=== PATIENT | male | born 1990 | race Caucasian/White ===

== ENCOUNTER 2017-11-18 09:36 | Inpatient (IN) | payer BC ==
[~2017-11-18] VITALS: Ht 195.6 cm; Wt 207.7 kg
[2017-11-18 09:41] VITALS: Ht 195.6 cm; Wt 207.7 kg
[2017-11-18 11:45] LABS: BASOPHIL % 0.2 % (0-2); PLATELET COUNT 343 x10^3mcL (130-400); RED CELL DISTRIBUTION WIDTH 14.5 % (11.5-14.5)
[2017-11-18 12:03] LABS: CALCIUM 9.2 mg/dL (8.5-10.1); CARBON DIOXIDE 29.4 mmol/L (21-32); CHLORIDE SERUM 108 mmol/L (98-107); CREATININE SERUM 1.2 mg/dL (0.7-1.3); GFR1 > 60 mL/min; GLUCOSE SERUM 90 mg/dL (74-106); POTASSIUM SERUM 4.1 mmol/L (3.5-5.1); SODIUM SERUM 140 mmol/L (136-145)
[2017-11-18 12:07] LABS: ALBUMIN 3.7 g/dL (3.4-5.0); ALKALINE PHOSPHATASE 66 U/L (46-116); ALT/SGPT 82 U/L (16-63); AMYLASE 41 U/L (25-115); AST/SGOT 42 U/L (15-37); BILIRUBIN TOTAL 0.47 mg/dL (0.20-1.00); LIPASE 120 IU/L (73-393); TOTAL PROTEIN, SERUM 7.5 g/dL (6.4-8.2)
[2017-11-18 13:07] LABS: UA SPECIFIC GRAVITY 1.025 (1.005-1.035); microscopic required? YES; urine erythrocyte 3+ (NEGATIVE)
[2017-11-18] MEDS ORDERED: PHENTERMINE HCL30 MG PO (14:33)
[2017-11-18] MEDS ORDERED: COZAAR100 MG PO (14:33)
[2017-11-18] MEDS ORDERED: TOPROL XL25 MG PO (14:34)
[2017-11-18 15:58] LABS: CHOLESTEROL/HDL RATIO 3.4; MAGNESIUM 2.3 mg/dL (1.8-2.4); PHOSPHOROUS 3.5 mg/dL (2.5-4.9)
[2017-11-18 16:01] LABS: T3 TOTAL 1.33 ng/mL
[2017-11-18 16:03] LABS: AMPHETAMINE QUAL UR NONE DETECTED (NEG <=1000)
[2017-11-18 16:06] VITALS: BP 106/42
[2017-11-18 16:07] LABS: FREE T4 1.1 ng/dL (0.76-1.46); FREE THYROXINE INDEX 3.3 ug/dL (1.4-4.5); T4(THYROXINE) 10.2 ug/dL (4.7-13.3)
[2017-11-18 16:43] VITALS: BP 136/80
[2017-11-18 21:11] VITALS: BP 143/84
[2017-11-19 04:47] VITALS: BP 137/85
[2017-11-19 06:37] LABS: BASOPHIL % 0.2 % (0-2); PLATELET COUNT 296 x10^3mcL (130-400)
[2017-11-19 06:49] LABS: CALCIUM 8.7 mg/dL (8.5-10.1); CARBON DIOXIDE 28.7 mmol/L (21-32); CREATININE SERUM 1.7 mg/dL (0.7-1.3); POTASSIUM SERUM 3.9 mmol/L (3.5-5.1)
[2017-11-19 07:01] LABS: RED CELL DISTRIBUTION WIDTH 14.8 % (11.5-14.5)
[2017-11-19 09:27] VITALS: BP 149/89
[2017-11-19 12:48] VITALS: BP 138/75
[2017-11-19] MEDS ORDERED: TYL325 PO (15:39)
[2017-11-19 16:57] VITALS: BP 138/75
[2017-11-19 17:24] VITALS: BP 140/86
[2017-11-19 21:37] VITALS: BP 96/54
== END 2017-11-19 18:20 | disposition home or self-care (01) | DRG 693 ==
LOC: ED 09:36 → DU 14:24
PROVIDERS: Emergency Medicine; Family Medicine
DX: N20.0 Calculus of kidney (principal); N17.0 Acute kidney failure with tubular necrosis; Z68.43 Body mass index [BMI] 50.0-59.9, adult; I10 Essential (primary) hypertension; E66.01 Morbid (severe) obesity due to excess calories; R73.03 Prediabetes; Z79.899 Other long term (current) drug therapy
CPT/HCPCS: 83880; 84439; J0696; J1885; J2270; J2405; J7030; Q0092